=== PATIENT | female | born 2000 | race Caucasian/White ===

== ENCOUNTER 2023-08-20 01:16 | Emergency (ER) | payer OTHER, SELFPAY ==
[2023-08-20 01:19] VITALS: BP 100/70
[2023-08-20 02:24] LABS: % Basophils 0.4 % (0-2); % Eosinophils 1.1 % (0-6); % Immature Granulocytes 0.3 % (0-0.5); % Lymphocytes 18.2 % (20.5-51.1); % Monocytes 4.5 % (1.7-9.3); % Neutrophils 75.5 % (42.2-75.2); Absolute Basophils 0.1 10^3/uL (0-0.2); Absolute Eosinophils 0.2 10^3/uL (0-0.7); Absolute Lymphocytes 2.5 10^3/uL (1.2-3.4); Absolute Monocytes 0.6 10^3/uL (0.1-0.6); Absolute Neutrophils 10.3 10^3/uL (1.4-6.5); Hematocrit 36.7 % (37.0-47.0); Hemoglobin 12.6 g/dL (12.0-16.0); Mean Corp Hgb Conc. 34.3 g/dL (33.0-37.0); Mean Corpuscular Hgb 29.4 pg (27.0-31.0); Mean Corpuscular Volume 85.7 fL (81.0-99.0); Mean Platelet Volume 9.4 fL (7.4-10.4); Nucleated Red Blood Cells % 0 %; Platelet Count 231 10^3/uL (130-400); Red Blood Cell Count 4.28 10^6/uL (4.20-5.40); Red Cell Dist. Width 13.4 % (11.5-14.5); White Blood Cell Count 13.7 10^3/uL (4.8-10.8)
[2023-08-20 02:35] VITALS: BP 106/78
[2023-08-20 03:38] VITALS: BP 111/71; BMI 28.2
--- NOTE | 2023-08-20 03:42 | EDRN ---
Pt developed uti symptoms early Sunday morning - burning/pain, urgency. Pt has hx utis. Pt went to [facility] hour pharmacy and took first Azo tablet Sunday at 0500. Two more doses followed at 1600 and 2100. Pt developed chills and nausea Sunday night.
No fever. Pt took a shower, was chilled then hot, got lightheaded and passed out in the shower. Pt came to ED for evaluation. Pt says while she was in triage, she got lightheaded again and felt 'like when I'm in a crowded room and it's too much'
and she started to pass out again so she was laid down in protocol room. Pt has lower back pain but she says this is not new with uti symptoms and does not feel it is related because she recently started working out. Pt denies cp, sob, abd pain,
n/v/d/constipation, blood in urine, fever/cough. Pt ambulated in ED room #27 to go to the bathroom - gait steady, no lightheadedness.
[2023-08-20 03:54] LABS: Urine Albumin Trace (Neg - Trace); Urine Bilirubin 3+ (Negative); Urine Character Slightly Cloudy (Clear); Urine Color Orange; Urine Glucose Negative (Negative); Urine Ketone Trace (Negative); Urine Leukocyte 1+ (Negative); Urine Nitrite Positive (Negative); Urine Occult Blood 3+ (Negative); Urine Urobilinogen 4+ (Neg - 1+)
[2023-08-20 03:58] LABS: HCG, Serum Qualitative Screen Negative
[2023-08-20 04:00] VITALS: BP 114/76
[2023-08-20 04:01] LABS: ALT (SGPT) 33 U/L (0-35); AST (SGOT) 34 U/L (14-36); Albumin 4.2 g/dl (3.5-5.0); Alkaline Phosphatase 67 U/L (38-126); Blood Urea Nitrogen 17 mg/dl (7-17); Calcium 9.1 mg/dl (8.4-10.2); Carbon Dioxide 27 mmol/L (22-30); Chloride 105 mmol/L (98-107); Estimated Creatinine Clearance > 125 ml/min; Glucose 106 mg/dl (70-99); Potassium 4.3 mmol/L (3.5-5.1); Sodium 136 mmol/L (135-145); Total Bilirubin 0.4 mg/dl (0.2-1.3); Total Protein 7.2 g/dl (6.3-8.2); eGFR > 60.00
[2023-08-20 04:15] LABS: Urine Amorphous Seen; Urine Bacteria Many (Negative); Urine Mucus Many; Urine Squamous Cell >30 /LPF (Few); Urine Urothelial Cell >30 /LPF (FEW)
[2023-08-20 04:16] LABS: Urine Red Blood Cell 70-80 /HPF (0-2); Urine White Cell >100 /HPF (0-5)
--- NOTE | 2023-08-20 04:39 | ED.GENMED ---
History of Present Illness
<MARLON Ramos - Last Filed: 08/20/23 06:05>
General
Chief Complaint: Abdominal Pain
Exam Limitations: none
Time Seen by Provider: 08/20/23 04:26
Travel History
Have you had any contact with someone who has COVID-19?: No
Do you have any symptoms of coronavirus? Fever > 100 degrees, chills, cough, shortness of breath, sore throat, loss of taste or smell, muscle aches, or headache?: No
History of Present Illness
History of Present Illness:
This is a 22 yo female with so significant PMH presenting for burning with urination x 1 day. She states she noticed this yesterday morning and is accompanied by urinary frequency. She describes an associated syncopal event prior to coming to the
ED. She felt lightheaded and crawled to the shower where she was unconscious for about 20 minutes. She had another near-syncopal event in triage but felt better after laying down. She states she has not felt lightheaded since arriving to her room in
the ED. She states associated nausea since onset of symptoms. She denies gross hematuria, vomiting, fever, chills, flank pain.
She admits to a history of UTI approximately 1 year ago which presented with similar urinary symptoms and was successfully treated with macrobid.
<Job Canales DO - Last Filed: 08/20/23 05:20>
General
Source: patient
Nursing documentation reviewed up to this point in time: agreed with
Review of Systems
<MARLON Ramos - Last Filed: 08/20/23 06:05>
Review of Systems
Allergies reviewed?: Yes
Constitutional: Reports no symptoms
Respiratory: Reports no symptoms
Cardiac: Reports syncope (precipitated by lightheadedness)
ABD/GI: Reports nausea
: Reports dysuria and frequency
Skin: Reports no symptoms
Neurological: Reports no symptoms
Phy Exam
<Julio Khan [facility] - Last Filed: 08/20/23 06:05>
General Physical Exam
General Presentation: well appearing
General age: appears stated age
General Skin: warm and dry
General Habitus: normal
General Mental: alert
General Hydration: appears well hydrated
Cardiovascular Exam
Cardiovascular Exam: regular rate/rhythm, no gallop and no murmur
Pulmonary Exam
Pulmonary Exam: lungs clear, no respiratory distress and no cough
Gastrointestinal Exam
Gastrointestinal Exam: non tender, soft and non distended
Palpation: generalized: No tenderness
Neurological Exam
Neurological Exam: alert and oriented x3
Psychiatric Exam
Psychiatric Exam: normal mood/affect
Course
<ST RachelSC - Last Filed: 08/20/23 06:05>
Orders/Labs/Results
Orders:
Orders
08/20/23 02:03
Test Result ONCE
08/20/23 02:19
Complete Blood Count/With Diff Urgent
08/20/23 03:26
Comprehensive Metabolic Panel Urgent
Comment: REDRAW
HCG, Serum Qualitative Screen Urgent
Comment: REDRAW
Urinalysis Urgent
Date Specimen was Collected: 08/20/23
Time Specimen was Collected: 02:01
Urine Microscopic Urgent
Date Specimen was Collected: 08/20/23
Time Specimen was Collected: 02:01
08/20/23 05:14
Nitrofurantoin Monohydrate [Macrobid] 100 mg PO NOW STA
Abnormal Lab Results
08/20/23 08/20/23
02:19 03:26
WBC 13.7 H 10^3/uL
(4.8-10.8)
Hct 36.7 L %
(37.0-47.0)
Absolute Neuts (auto) 10.3 H 10^3/uL
(1.4-6.5)
Neutrophils % 75.5 H %
(42.2-75.2)
Lymphocytes % 18.2 L %
(20.5-51.1)
Glucose 106 H mg/dl
(70-99)
Urine Ketones Trace A
(Negative)
Urine Occult Blood 3+ A
(Negative)
Urine Nitrite Positive A
(Negative)
Urine Bilirubin 3+ A
(Negative)
Urine Urobilinogen 4+ A
(Neg - 1+)
Ur Leukocyte Esterase 1+ A
(Negative)
Urine RBC 70-80 A /HPF
(0-2)
Urine WBC >100 A /HPF
(0-5)
Urine Bacteria Many A
(Negative)
08/20/23 02:19
08/20/23 03:26
Vital Signs
Initial and Last Documented VS:
Initial Vital Signs
Temp Pulse Resp BP Pulse Ox
97.8 F 102 22 100/70 98
08/20/23 01:19 08/20/23 01:19 08/20/23 01:19 08/20/23 01:19 08/20/23 01:19
Last Documented Vital Signs
Temp Pulse Resp BP Pulse Ox
97.8 F 92 15 106/72 98
08/20/23 01:19 08/20/23 05:00 08/20/23 05:00 08/20/23 05:00 08/20/23 02:35
<Job Canales DO - Last Filed: 08/20/23 05:20>
Orders/Labs/Results
Orders:
Orders
08/20/23 02:03
Test Result ONCE
08/20/23 02:19
Complete Blood Count/With Diff Urgent
08/20/23 03:26
Comprehensive Metabolic Panel Urgent
Comment: REDRAW
HCG, Serum Qualitative Screen Urgent
Comment: REDRAW
Urinalysis Urgent
Date Specimen was Collected: 08/20/23
Time Specimen was Collected: 02:01
Urine Microscopic Urgent
Date Specimen was Collected: 08/20/23
Time Specimen was Collected: 02:01
08/20/23 05:14
Nitrofurantoin Monohydrate [Macrobid] 100 mg PO NOW STA
Abnormal Lab Results
08/20/23 08/20/23
02:19 03:26
WBC 13.7 H 10^3/uL
(4.8-10.8)
Hct 36.7 L %
(37.0-47.0)
Absolute Neuts (auto) 10.3 H 10^3/uL
(1.4-6.5)
Neutrophils % 75.5 H %
(42.2-75.2)
Lymphocytes % 18.2 L %
(20.5-51.1)
Glucose 106 H mg/dl
(70-99)
Urine Ketones Trace A
(Negative)
Urine Occult Blood 3+ A
(Negative)
Urine Nitrite Positive A
(Negative)
Urine Bilirubin 3+ A
(Negative)
Urine Urobilinogen 4+ A
(Neg - 1+)
Ur Leukocyte Esterase 1+ A
(Negative)
Urine RBC 70-80 A /HPF
(0-2)
Urine WBC >100 A /HPF
(0-5)
Urine Bacteria Many A
(Negative)
08/20/23 02:19
08/20/23 03:26
Vital Signs
Initial and Last Documented VS:
Initial Vital Signs
Temp Pulse Resp BP Pulse Ox
97.8 F 102 22 100/70 98
08/20/23 01:19 08/20/23 01:19 08/20/23 01:19 08/20/23 01:19 08/20/23 01:19
Last Documented Vital Signs
Temp Pulse Resp BP Pulse Ox
97.8 F 92 15 106/72 98
08/20/23 01:19 08/20/23 05:00 08/20/23 05:00 08/20/23 05:00 08/20/23 02:35
<MARLON Ramos - Last Filed: 08/20/23 06:05>
MDM/Problems Addressed
Differential Diagnosis Includes:
Urinary tract infection
Vasovagal syncope
MDM/Problems Addressed:
Patient describes a 1 day history of dysuria and increased urinary frequency that is consistent with her presentation for a UTI about 1 year ago.
Urinalysis findings consistent with UTI
Patient will be given macrobid for UTI
Chronic conditions affecting care: Neurological disorder
<MARLON Ramos - Last Filed: 08/20/23 06:05>
*Critical Care Note
Total Time (30-74mins, 75-104mins- exclusive of procedures): Not Applicable
ED Attending Note
<MARLON Ramos - Last Filed: 08/20/23 06:05>
-
Portions of this chart may have been created with voice recognition software.� Occasional wrong word or��sound alike� substitutions may have occurred due to the inherent limitations of voice recognition software.
<Job Canales DO - Last Filed: 08/20/23 05:20>
ED Attending Note
Patient seen and examined by attending physician: Yes
I performed the substantive portion of visit, reviewed & personally made and approve the management plan that is documented in note by myself or MAYDA.: Yes
ED Attending Note:
Pleasant 22-year-old female presents with lower abdominal pain with urinary frequency burning. She states that she did have low-grade fever. Tonight she was in the shower and she stood up and passed out. She did not hit her head or lose
consciousness. Patient states that she felt better after the event when lying down. Yesterday she took Azo which helped with her symptoms. She denies any previous medical history. She reports only taking control. Patient was seen in
conjunction with the PA student. I have reviewed and agree with the history and treatment plan presented. On my independent physical exam, patient is awake, alert, and oriented x3, minimal acute distress. Heart is regular rate and rhythm. Lungs
are clear to auscultation bilateral without wheezes rales or rhonchi. Abdomen is soft and nontender.
Discharge Plan
Departure
Patient Disposition: Home (Routine Discharge)
Date of Disposition: 08/20/23
Time of Disposition: 05:18
Patient with high blood pressure during this ER visit?: No
Discharge Problem:
UTI (urinary tract infection)
Instructions: Urinary Tract Infection, Adult ED
Prescriptions:
New
nitrofurantoin monohyd/m-cryst [Macrobid] 100 mg capsule
100 mg PO Q12H 7 Days Qty: 14 0RF
No Action
Control Pill
1 tab PO DAILY
Patient Comments:
pt does not remember the name of bcp
Referrals:
[facility] [Outside]
NONE,* [Family Provider] -
Stand Alone Forms: Return to Work
Activity Restrictions/Additional Instructions:
It was a pleasure meeting you and taking part in your care. We hope for your continued healing and wellness.
Please read discharge instructions in their entirety. However, they are for general education and may not describe your exact diagnosis at discharge. Information on your ER visit and medical conditions were discussed with you along with appropriate
follow up information...
If indicated, please take your medications as instructed and indicated on discharge paperwork.
Please schedule a follow up appointment as directed. Call to schedule an appointment
Please return to the emergency department with ANY change in, persisting, or worsening of symptoms. If any of your symptoms do not improve, or persist, or become more severe within 6-12 hours, please return to the emergency department for further
care.
Please return to the emergency department if you develop a headache, neck pain/stiffness, fever greater than 100.4F, chest pain, shortness of breath, persistent nausea, vomiting, slurred speech, difficulty walking, numbness/tingling, weakness, signs
of infection or any other symptoms that are worrisome to you.
If you have any questions or concerns please do not hesitate to call the Hospital at or E-mail me directly at [email or web address]
Interventions
Interventions:
*Risk Screen - Suicide Last Done: 08/20/23 03:38
*General Assessment Last Done: 08/20/23 03:38
*Neglect/Abuse Screening Last Done: 08/20/23 03:38
*ED COVID-19 Vaccine History Last Done: 08/20/23 03:38
*Nursing Disposition Last Done: 08/20/23 05:35
[facility]-Wuxlhw-Gfzlvkkxuc Assessment Last Done: 08/20/23 03:38
Discharge Date and Time
Discharge Date/Time: 08/20/23 05:35
Print Language: BELGIAN
[2023-08-20 05:00] VITALS: BP 106/72
[2023-08-20] MEDS: MACROBID 100 MG PO (05:21)
== END 2023-08-20 05:35 | disposition home or self-care (01) ==
LOC: EMR 01:16
PROVIDERS: EMERGENCY PHYSICIAN Student in an Organized Health Care Education/Training Program
DX: N39.0 Urinary tract infection, site not specified (principal)
CPT/HCPCS: 99283; 80053; 81003; 81015; 84703; 85025

== ENCOUNTER 2024-02-25 23:06 | Emergency (ER) | payer OTHER, SELFPAY ==
[2024-02-25 23:14] VITALS: BP 128/90
[2024-02-25 23:32] VITALS: BP 115/72
[2024-02-25 23:34] VITALS: BMI 30.7
[2024-02-25 23:37] LABS: HCG, Urine Qualitative Screen Negative; Urine Albumin 1+ (Neg - Trace); Urine Bilirubin 2+ (Negative); Urine Character Very Cloudy (Clear); Urine Color Yellow; Urine Glucose Negative (Negative); Urine Ketone Negative (Negative); Urine Leukocyte 2+ (Negative); Urine Nitrite Positive (Negative); Urine Occult Blood 4+ (Negative); Urine Urobilinogen 3+ (Neg - 1+)
--- NOTE | 2024-02-25 23:44 | ED.GENMED ---
History of Present Illness
General
Chief Complaint: Female Icing Mixer/Gu symptoms
Time Seen by Provider: 02/25/24 23:30
History of Present Illness
History of Present Illness:
Patient is a 23-year-old woman who is otherwise healthy presenting to the emergency department with urinary symptoms. Basis for the past 1 day she has had some suprapubic discomfort dysuria increased frequency and hesitancy. This feels like her
prior UTIs. She has taken Macrobid in the past with great improvement. No back pain. No fevers or chills. No nausea vomiting or abdominal pain. She is due for her. Any day now. Of note patient does mention that when she was given the urine
sample she did notice some blood on the wipe and thinks it is her period. Denies any history of kidney stone or any radiating back pain. No vaginal discharge.
Phy Exam
Physical Exam
Physical Exam:
GENERAL: in no acute distress
HEENT: normocephalic, extraocular movements intact, moist oral mucosa
NECK: normal inspection
RESPIRATORY: no respiratory distress, clear to auscultation bilaterally
CARDIOVASCULAR: regular rate and rhythm
ABDOMEN/: soft, non-distended, non-tender to palpation, no rebound or guarding, no CVA tenderness
EXTREMITIES: non-tender, no edema/swelling
NEUROLOGIC: awake and alert, moves all extremities
SKIN: warm
Course
Orders/Labs/Results
Orders:
Orders
02/25/24 23:25
Test Result ONCE
02/25/24 23:29
HCG, Urine Qualitative Screen Urgent
Date Specimen was Collected: 02/25/24
Time Specimen was Collected: 23:25
Urinalysis Reflex To Culture Urgent
Date Specimen was Collected: 02/25/24
Time Specimen was Collected: 23:25
Urine Microscopic Reflex Cult Urgent
Urine Culture Urgent
THEODORA Source: U
Specimen Description:
Date Specimen was Collected: 02/25/24
Time Specimen was Collected: 23:25
02/25/24 23:44
Nitrofurantoin Monohydrate [Macrobid] 100 mg PO NOW STA
Abnormal Lab Results
02/25/24
23:29
Ur Occult Blood Reflex 4+ A
(Negative)
Urine Nitrite (Reflex) Positive A
(Negative)
Urine Bilirubin 2+ A
(Negative)
Urine Urobilinogen 3+ A
(Neg - 1+)
Leukocyte Esterase Rfl 2+ A
(Negative)
Urine Albumin (Reflex) 1+ A
(Neg - Trace)
Vital Signs
Initial and Last Documented VS:
Initial Vital Signs
Temp Pulse Resp BP Pulse Ox
98.4 F 94 18 128/90 99
02/25/24 23:14 02/25/24 23:14 02/25/24 23:14 02/25/24 23:14 02/25/24 23:14
Last Documented Vital Signs
Temp Pulse Resp BP Pulse Ox
98.4 F 94 18 115/72 99
02/25/24 23:14 02/25/24 23:14 02/25/24 23:14 02/25/24 23:32 02/25/24 23:14
MDM/Problems Addressed
Differential Diagnosis Includes:
Patient is a 23-year-old woman presenting to the emergency department with 1 day of urinary frequency hesitancy dysuria and suprapubic discomfort. Vitals are unremarkable and exam is reassuring. Urine was completed prior to evaluation which is
consistent with a UTI. She is not . Will discharge at this time with Macrobid. Will give first dose here.
*Critical Care Note
Total Time (30-74mins, 75-104mins- exclusive of procedures): Not Applicable
ED Attending Note
-
Portions of this chart may have been created with voice recognition software.� Occasional wrong word or��sound alike� substitutions may have occurred due to the inherent limitations of voice recognition software.
Discharge Plan
Departure
Patient Disposition: Home (Routine Discharge)
Date of Disposition: 02/25/24
Time of Disposition: 23:42
Patient with high blood pressure during this ER visit?: No
Discharge Problem:
UTI (urinary tract infection)
Instructions: Urinary Tract Infection, Adult (DC)
Prescriptions:
New
nitrofurantoin monohyd/m-cryst [Macrobid] 100 mg capsule
100 mg PO Q12H 7 Days Qty: 14 0RF
No Action
Control Pill
1 tab PO DAILY
Patient Comments:
pt does not remember the name of bcp
nitrofurantoin monohyd/m-cryst [Macrobid] 100 mg capsule
100 mg PO Q12H 7 Days Qty: 14 0RF
Activity Restrictions/Additional Instructions:
You were seen in the Emergency Department today for a urinary tract infection. While you were here we started you on antibiotics. I did give you your first dose here
We would like for you to follow up with your primary care physician for further evaluation. If you experience fever, worsening of your symptoms, or develop any other new or concerning symptoms, please return to the Emergency Department immediately.
Please see the attached sheet for additional information.
Interventions
Interventions:
*Risk Screen - Suicide Last Done: 02/25/24 23:14
*General Assessment Last Done: 02/25/24 23:14
*Neglect/Abuse Screening Last Done: 02/25/24 23:14
ED- Fall Risk Assessment Last Done: 02/25/24 23:14
*ED COVID-19 Vaccine History Last Done: 02/25/24 23:14
ED-Female Genitourinary Assessment Last Done: 02/25/24 23:26
Discharge Date and Time
Print Language: MONGOLIAN
[2024-02-25 23:48] LABS: Urine Bacteria Many (Negative); Urine Red Blood Cell 30-40 /HPF (0-2)
[2024-02-25] MEDS: MACROBID 100 MG PO (23:48)
== END 2024-02-25 23:55 | disposition home or self-care (01) ==
LOC: EMR 23:06
PROVIDERS: Emergency Medicine; EMERGENCY PHYSICIAN Student in an Organized Health Care Education/Training Program
DX: N39.0 Urinary tract infection, site not specified (principal)
CPT/HCPCS: 99283; 81003; 81015; 81025; 87086; 87088